=== PATIENT | male | born 1985 | race Caucasian/White ===

== ENCOUNTER 2022-06-23 10:13 | Emergency (ER) | payer SELFPAY ==
[2022-06-23 10:15] VITALS: BP 162/92; PULSE 72; RESP 16; TEMP 36.3; O2SAT 99
--- NOTE | 2022-06-23 10:34 | ED.GENADULT ---
HPI - General Adult General Chief complaint: Dental/Oral Stated complaint: tooth pain Time Seen by Provider: 06/23/22 10:29 History of Present Illness HPI narrative: Vicente presented to the ED with pain in his right lower molars that has been getting worse for a few days. He needs a root canal but cannot get into the dentist as he is from [place] but out of town on work. No dysphagia or trouble breathing. Related Data Allergies Allergy/AdvReac Type Severity Reaction Status Date / Time No Known Allergies Allergy Verified 06/23/22 10:22 Review of Systems Review of Systems: All systems reviewed & are unremarkable except as noted in HPI and below Exam Const: General: healthy appearing, no acute distress and alert Nutritional Appearance: well nourished Orientation/consciousness: patient oriented x3 Limitations: no limitations HENMT: Head: normal to inspection Ears: external ears normal Face/Nose/Sinus: Normal external nose present Face and sinus: normal facial exam Other: Base of right lower molar was erythematous, swollen and TTP Eyes: Conjunctivae: conjunctivae normal Pupils: Equal, round and reactive pupils present EOM: EOMs intact bilaterally Neck: Neck: normal visual inspection Chest: Chest palpation & inspection: normal inspection of the chest Resp: Effort & Inspection: normal respiratory effort Cardio: Rate: regular rate GI: Inspection: non-distended Skin: General skin exam: normal color Neuro: General: patient oriented x3 Cranial nerves: Yes Nystagmus not present Course Vital Signs Vital signs: Vital Signs Temperature 97.4 F L 06/23/22 10:15 Pulse Rate 72 06/23/22 10:15 Respiratory Rate 16 06/23/22 10:15 Blood Pressure 162/92 H 06/23/22 10:15 Pulse Oximetry 99 06/23/22 10:15 Oxygen Delivery Room Air 06/23/22 10:15 Temperature 97.4 F L 06/23/22 10:15 Pulse Rate 72 06/23/22 10:15 Respiratory Rate 16 06/23/22 10:15 Blood Pressure 162/92 H 06/23/22 10:15 Pulse Oximetry 99 06/23/22 10:15 Oxygen Delivery Room Air 06/23/22 10:15 Medical Decision Making Vital Signs Vital Signs: Vital Signs Temperature 97.4 F L 06/23/22 10:15 Pulse Rate 72 06/23/22 10:15 Respiratory Rate 16 06/23/22 10:15 Blood Pressure 162/92 H 06/23/22 10:15 Pulse Oximetry 99 06/23/22 10:15 Oxygen Delivery Room Air 06/23/22 10:15 Temperature 97.4 F L 06/23/22 10:15 Pulse Rate 72 06/23/22 10:15 Respiratory Rate 16 06/23/22 10:15 Blood Pressure 162/92 H 06/23/22 10:15 Pulse Oximetry 99 06/23/22 10:15 Oxygen Delivery Room Air 06/23/22 10:15 Discharge Plan Discharge Clinical Impression: Dental infection Patient Disposition: Home, Self-Care Condition: Stable Instructions: Toothache (ED) Prescriptions: New amoxicillin-pot clavulanate 875-125 mg tablet 1 tablet PO Q12H Qty: 10 0RF hydrocodone-acetaminophen 5-325 mg tablet 1 tablet PO Q8H PRN (Reason: pain) Qty: 10 0RF Follow-up/Referrals: UNKNOWN,DOCTOR [Primary Care Provider] - Stand Alone Forms: Work/School Release IP
[2022-06-23] MEDS: AMOXICILLIN/CLAVULANATE K 875-125 MG TAB 1 TABLET PO (10:42)
[2022-06-23] MEDS: KETOROLAC 30 MG/ML VIAL (*BKC) IM (10:42)
== END 2022-06-23 10:49 | disposition home or self-care (01) ==
LOC: CHSED 10:39
PROVIDERS: Emergency Provider Family Medicine
DX: K04.7 Periapical abscess without sinus (principal)
CPT/HCPCS: 96372; 99283; A9270; J1885